=== PATIENT | male | born 1950 | race Caucasian/White ===

== ENCOUNTER 2020-12-01 23:33 | Emergency (ER) | payer MEDICARE, MEDICAID ==
[~2020-12-01] VITALS: Ht 175.3 cm; Wt 74.8 kg
[2020-12-02 00:37] LABS: Urine WBC None Seen /hpf (0 - 3)
[2020-12-02 00:50] LABS: Basophils # (auto) 0.1 10 ^3/uL (0-0.2); Basophils % (auto) 0.8 % (0.0-2.0); Eosinophils # (auto) 0.4 10 ^3/uL (0-0.8); Eosinophils % (auto) 4.8 % (0.0-7.0); Hematocrit 42.4 % (41.0-53.0); Hemoglobin 14.2 g/dL (13.5-17.5); Lymphocytes # (auto) 1.7 10 ^3/uL (0.4-5.4); Lymphocytes % (auto) 21.9 % (10.0-50.0); Mean Corpuscular Hemoglobin 31.4 pg (28.0-32.0); Mean Corpuscular Hgb Conc. 33.6 g/dL (32.0-36.0); Mean Corpuscular Volume 93.5 fL (80.0-100.0); Monocytes # (auto) 0.9 10 ^3/uL (0-1.3); Monocytes % (auto) 11.2 % (0.0-12.0); Neutrophils # (auto) 4.7 10 ^3/uL (1.6-8.6); Neutrophils % (auto) 61.3 % (37.0-80.0); Nucleated Red Blood Cells % 0.1 %; Platelet Count (auto) 304 10^3/uL (140-450); Red Blood Cells 4.53 10^6/uL (4.5-5.90); Red Cell Distribution Width 13.6 % (11.8-14.3); White Blood Cell 7.7 10^3/uL (4.4-10.8)
[2020-12-02 00:55] LABS: Urine Bacteria NONE SEEN /hpf (None Seen); Urine Blood Negative /uL (Negative); Urine Specific Gravity 1.002 (1.001-1.035)
[2020-12-02 01:04] LABS: Alanine Aminotransferase 35 U/L (16-61); Albumin 3.9 g/dL (3.4-5.0); Anion Gap 9 (5-15); Aspartate Aminotransferase 40 U/L (15-37); Blood Urea Nitrogen 12 mg/dL (7-18); Calcium 8.5 mg/dL (8.5-10.1); Carbon Dioxide 23 mmol/L (21-32); Chloride 114 mmol/L (98-107); GFR African American 94 mL/min; GFR Non-African American 78 mL/min; Glucose 110 mg/dL (74-106); Magnesium 2.4 mg/dL (1.6-2.6); Sodium 146 mmol/L (136-145)
[2020-12-02 01:05] LABS: INR 0.98 (0.9-1.15); Partial Thromboplastin Time 25.6 sec (23.0-31.2)
[2020-12-02 01:13] LABS: Alkaline Phosphatase 63 U/L (45-117); Bilirubin, Total 0.2 mg/dL (0.2-1.0); Total Protein 7.7 g/dL (6.4-8.2)
[2020-12-02] MEDS ORDERED: FUROSEMIDE 20 MG/2 ML VIAL IV ONE (02:30)
[2020-12-02] MEDS ORDERED: IOHEXOL 350 MG/ML 100ML IJ ONE (02:51)
[2020-12-02 06:30] VITALS: BP 121/77
== END 2020-12-02 06:31 | disposition home or self-care (01) ==
LOC: EDBD 23:33 → ER 23:38 → EDSEX 23:38 → ER 12-02 06:31
DX: R07.89 Other chest pain (principal); F10.129 Alcohol abuse with intoxication, unspecified; R79.89 Other specified abnormal findings of blood chemistry; J44.9 Chronic obstructive pulmonary disease, unspecified; Z87.891 Personal history of nicotine dependence; Y90.8 Blood alcohol level of 240 mg/100 ml or more
CPT/HCPCS: 36415; 71045; 71275; 80053; 80320; 81001; 83735; 83880; 84443; 84484; 85025; 85379; 85610; 85730; 96374; 99285; J1940; Q9967